=== PATIENT | female | born 1945 | race African-American/Black ===

== ENCOUNTER 2017-07-09 08:43 | Emergency (ER) | payer MEDICARE | END 2017-07-09 09:28 | disposition home or self-care (01) | LOC: ERS 08:43 | DX: M54.32 Sciatica, left side (principal); K21.0 Gastro-esophageal reflux disease with esophagitis; I10 Essential (primary) hypertension; F17.210 Nicotine dependence, cigarettes, uncomplicated; Z79.899 Other long term (current) drug therapy | CPT/HCPCS: 99283 ==

== ENCOUNTER 2017-08-23 20:02 | Emergency (ER) | payer MEDICARE ==
[2017-08-23 20:44] LABS: #Basophils 0.1 thou/uL (0.0-0.2); #Eosinphils 0.1 thou/uL (0.0-0.7); #Lymphocytes 1.3 thou/uL (1.20-3.40); #Monocytes 0.4 thou/uL (0.11-0.59); #Neutrophils 3.3 thou/uL (1.40-6.50); %Basophils 1.1 % (0.0-1.0); %Eosinophils 2.2 % (0.0-10.0); %Monocytes 8.2 % (0.0-10.0); %Neutrophils 63.6 % (42.0-75.0); Hemoglobin 14.8 g/dL (12.0-16.0); Mean Corpuscular HGB CONC 33.6 g/dL (32.0-36.0); Mean Corpuscular Hemoglobin 30.9 pg (27.0-31.0); Mean Corpuscular Volume 91.9 fl (81.0-99.0); Mean Platelet Volume 8.1 fL (7.4-10.4); Platelet Count 244 thou/uL (130-400); RBC Distribution Width 13.8 % (11.5-14.5); Red Blood Cell (RBC) Count 4.78 mill/uL (4.20-5.40); White Blood Cell (WBC) Count 5.3 thou/uL (4.8-10.8)
[2017-08-23 21:11] LABS: CKMB 0.9 ng/mL (0-6.6); Troponin I Less than 0.010 ng/mL (< 0.028)
[2017-08-23 21:15] LABS: ALT (SGPT) 19 U/L (8-55); AST (SGOT) 33 U/L (5-34); Albumin 4.4 g/dL (3.4-4.8); Alkaline Phosphatase 85 U/L (40-150); Anion Gap 13 mmol/L (10-20); BUN (Urea Nitrogen) 13 mg/dL (9.8-20.1); Bilirubin, Total 0.3 mg/dL (0.2-1.2); CK (CPK) 129 U/L (29-168); Calc. Creatinine Clearance 0 mL/min (70-130); Calcium 10.6 mg/dL (7.8-10.44); Carbon Dioxide 27 mmol/L (23-31); Chloride 102 mmol/L (98-107); Estimated GFR-MDRD 40; Glucose 148 mg/dL (83-110); Protein, Total 8.4 g/dL (6.0-8.3); Sodium 138 mmol/L (136-145)
== END 2017-08-23 21:56 | disposition home or self-care (01) ==
LOC: ERS 20:02
DX: I10 Essential (primary) hypertension (principal); K21.9 Gastro-esophageal reflux disease without esophagitis; F17.210 Nicotine dependence, cigarettes, uncomplicated; Z79.82 Long term (current) use of aspirin; Z79.899 Other long term (current) drug therapy
CPT/HCPCS: 80053; 82550; 82553; 83880; 84484; 85025; 93005

== ENCOUNTER 2017-12-14 19:51 | Emergency (ER) | payer MEDICARE ==
[2017-12-14] MEDS ORDERED: Ketorolac Tromethamine 60 MG/2 ML VIAL ONE (20:44)
--- NOTE | 2017-12-14 20:55 | RAD ---
RIGHT KNEE FOUR VIEWS: HISTORY: Right knee pain. FINDINGS: There are moderate arthritic changes of the knee. There is medial and lateral compartment narrowing and degenerative change. Minimal patellofemoral degenerative spurring. A small joint effusion. The bones appear demineralized. IMPRESSION: Moderate osteoarthritic changes of the knee. POS: [facility]
== END 2017-12-14 21:10 | disposition home or self-care (01) ==
LOC: ERS 19:51
DX: M17.11 Unilateral primary osteoarthritis, right knee (principal); K21.9 Gastro-esophageal reflux disease without esophagitis; I10 Essential (primary) hypertension; F17.210 Nicotine dependence, cigarettes, uncomplicated; Z79.82 Long term (current) use of aspirin; Z79.899 Other long term (current) drug therapy
CPT/HCPCS: 96372; J1885

== ENCOUNTER 2020-02-29 09:12 | Outpatient (CLI) | payer MEDICARE ==
--- NOTE | 2020-02-29 09:44 | MMO ---
Bilateral MAMMO Bilat Screen [facility]. CLINICAL HISTORY: Patient is 74 years old and is seen for screening. The patient has no family history of breast cancer. The patient has no personal history of cancer. The patient has a history of right Excisional Biopsy at age 55 - benign. VIEWS: The views performed were: bilateral craniocaudal with tomosynthesis and bilateral mediolateral oblique with tomosynthesis. FILMS COMPARED: The present examination has been compared to prior imaging studies performed at [facility] on 01/18/2010, 10/06/2015, 10/10/2016 and 11/16/2018. This study has been interpreted with the assistance of computer-aided detection. MAMMOGRAM FINDINGS: There are scattered fibroglandular densities. There are no suspicious masses, suspicious calcifications, or new areas of architectural distortion. IMPRESSION: THERE IS NO MAMMOGRAPHIC EVIDENCE OF MALIGNANCY. A ROUTINE FOLLOW-UP MAMMOGRAM IN 1 YEAR IS RECOMMENDED. THE RESULTS OF THIS EXAM WERE SENT TO THE PATIENT. ACR BI-RADS Category 1 - Negative MAMMOGRAPHY NOTE: 1. A negative mammogram report should not delay a biopsy if a dominant of clinically suspicious mass is present. 2. Approximately 10% to 15% of breast cancers are not detected by mammography. 3. Adenosis and dense breasts may obscure an underlying neoplasm. Reported by: LAZARO DUGAN MD Electonically Signed: [id number]
== END 2020-02-29 09:13 | disposition home or self-care (01) ==
LOC: BICMAMMO 09:12 → MERGE 09:12 → BICMAMMO 09:13
PROVIDERS: ATTEND Family Medicine
DX: Z12.31 Encounter for screening mammogram for malignant neoplasm of breast (principal); Z91.89 Other specified personal risk factors, not elsewhere classified
CPT/HCPCS: 77063; 77067

== ENCOUNTER 2020-03-24 19:56 | Observation (INO) | payer MEDICARE ==
[2020-03-24] MEDS ORDERED: EPINEPHrine 1 MG/ML AMP ONE (21:24)
[2020-03-24] MEDS ORDERED: diphenhydrAMINE 50 MG/ML VIAL ONE (21:24)
[2020-03-24] MEDS ORDERED: Famotidine/PF 20 mg/2ml Vial ONE (21:24)
[2020-03-24] MEDS ORDERED: methylPREDNISolone Sod Succ/PF 125 MG/2 ML VIAL ONE (21:24)
--- NOTE | 2020-03-24 21:30 | PDOC.HHP ---
Hospitalist HPI - History of Present Illness History of Present Illness: ADMISSION DATE: 03/24/2020 TIME OF ASSESSMENT: 2129 PRIMARY CARE PHYSICIAN: Lux Coronado CHIEF COMPLAINT: Tongue swelling HPI: Patient is a 74-year-old female past medical history significant for GERD and hypertension. She presents to the ER today after approximately 4 hours of tongue swelling. She states this is never happened before. Patient has been taking lisinopril for 6 months and states that her younger brother had a history of MARTA inhibitor induced angioedema and required a tracheostomy. She denies any difficulty breathing or difficulty swallowing at this time. She did take Benadryl and cough syrup approximately 90 minutes prior to arrival. Patient denies any chest pain, shortness of breath, Covid exposure, GI or upset, fever. ED COURSE: Vital Signs: Blood pressure 154/103, pulse 104, respiratory rate 16, temp 98.3, 100% on room air Today in the ER they completed lab work. She was administered epinephrine 0.15 mg IM, Benadryl 50 mg IV, methylprednisolone 125 mg IV, famotidine 20 mg IV, and 2 units fresh frozen plasma. PAST MEDICAL HISTORY: Acid reflux, hypertension PAST SURGICAL HISTORY: Right breast lumpectomy, tubal ligation, abscess to right cheek SOCIAL HISTORY: Patient lives at home with family. She denies alcohol or drug use. She is a current smoker and half a pack per day. FAMILY HISTORY: Brother with history of MARTA inhibitor induced angioedema requiring trach ALLERGIES: MARTA inhibitor CURRENT MEDICATIONS: Omeprazole 20 mg daily Lisinopril 20 mg daily Aspirin 81 mg daily Hospitalist ROS - Review of Systems ENT: reports: other (tongue swelling) All other systems reviewed; all pertinent +/- noted in HPI/Subj - Exam General Appearance: NAD, awake alert Eye: PERRL ENT: dry oral mucosa ENT - other findings: no hoarseness/stridor,visible uvula, tongue swelling L>R, mod. lip swell Neck: supple Heart: RRR, murmur present Respiratory: CTAB, no wheezes, no rales, no ronchi Gastrointestinal: soft, non-tender, non-distended, normal bowel sounds Extremities: no edema Neurological: no focal deficits Psychiatric: normal affect, normal behavior Hospitalist Results - Labs Result Diagrams: 03/24/20 21:21 03/24/20 22:17 Hospitalist H&P A/P - Plan Plan: MARTA inhibitor induced angioedema Continuous pulse ox Continue to monitor for any increased difficulty breathing or increased tongue swelling Continue IV Benadryl as needed Continue IV Pepcid and Solu-Medrol Receiving plasma in ER Start IV fluids Hypertension Monitor vital signs every 4 hours As needed antihypertensives available Hyponatremia Continue IV fluids Chronic kidney disease stage III Continue to monitor Avoid nephrotoxic medications Tobacco abuse Tobacco cessation education May have nicotine patch if desired VTE prophylaxis in place with SCDs Surrogate decision-makers are her daughters CODE STATUS: Full Patient has been discussed with Dr. Adelfo Dale
[2020-03-24 21:41] LABS: #Eosinphils 0.1 thou/uL (0.0-0.7); #Lymphocytes 1.2 thou/uL (1.20-3.40); #Monocytes 0.5 thou/uL (0.11-0.59); #Neutrophils 2.9 thou/uL (1.40-6.50); %Basophils 0.2 % (0.0-1.0); %Eosinophils 1.3 % (0.0-10.0); %Monocytes 10.6 % (0.0-10.0); %Neutrophils 62.9 % (42.0-75.0); Hemoglobin 12.1 g/dL (12.0-16.0); Mean Corpuscular HGB CONC 32.3 g/dL (32.0-36.0); Mean Corpuscular Hemoglobin 27.4 pg (27.0-31.0); Mean Corpuscular Volume 84.9 fL (78.0-98.0); Mean Platelet Volume 7.8 fL (7.4-10.4); Platelet Count 342 thou/uL (130-400); Red Blood Cell (RBC) Count 4.41 mill/uL (4.20-5.40); White Blood Cell (WBC) Count 4.6 thou/uL (4.8-10.8)
[2020-03-24] MEDS ORDERED: diphenhydrAMINE 50 MG/ML VIAL IVP PRN (22:09)
[2020-03-24] MEDS ORDERED: Labetalol HCl 100 MG/20 ML VIAL SLOW IVP PRN (22:14)
[2020-03-24 22:48] LABS: ALT (SGPT) 14 U/L (8-55); AST (SGOT) 17 U/L (5-34); Alkaline Phosphatase 84 U/L (40-110); Anion Gap 16 mmol/L (10-20); BUN (Urea Nitrogen) 20 mg/dL (9.8-20.1); Bilirubin, Total 0.2 mg/dL (0.2-1.2); Calc. Creatinine Clearance 0 mL/min (70-130); Calcium 9.8 mg/dL (7.8-10.44); Carbon Dioxide 24 mmol/L (23-31); Chloride 95 mmol/L (98-107); Globulin 3.1 g/dL (2.4-3.5); Glucose 188 mg/dL (83-110); Potassium 3.5 mmol/L (3.5-5.1); Protein, Total 7.1 g/dL (6.0-8.3); Sodium 131 mmol/L (136-145)
[2020-03-25 00:21] VITALS: BMI 31.0
[2020-03-25] MEDS: Sodium Chloride 0.9% 1,000 ML IV SCH ×2 (03:26→15:02)
[2020-03-25 04:28] LABS: SARS-CoV-2 MS2 Positive; SARS-CoV-2 N Gene Negative; SARS-CoV-2 S Gene Negative; SARS-CoV-2 by NAA Not Detected (NotDetected); SARS-CoV-2 orf1ab Negative
[2020-03-25 04:37] LABS: #Lymphocytes 0.3 thou/uL (1.20-3.40); #Monocytes 0.1 thou/uL (0.11-0.59); #Neutrophils 4.7 thou/uL (1.40-6.50); %Eosinophils 0.1 % (0.0-10.0); %Lymphocytes 5.8 % (21.0-51.0); %Monocytes 1.3 % (0.0-10.0); %Neutrophils 92.7 % (42.0-75.0); Hemoglobin 10.6 g/dL (12.0-16.0); Mean Corpuscular HGB CONC 32.7 g/dL (32.0-36.0); Mean Corpuscular Hemoglobin 27.7 pg (27.0-31.0); Mean Corpuscular Volume 84.6 fL (78.0-98.0); Mean Platelet Volume 7.7 fL (7.4-10.4); Platelet Count 307 thou/uL (130-400); RBC Distribution Width 13.7 % (11.5-14.5); Red Blood Cell (RBC) Count 3.83 mill/uL (4.20-5.40); White Blood Cell (WBC) Count 5.1 thou/uL (4.8-10.8)
[2020-03-25 04:50] LABS: Anion Gap 16 mmol/L (10-20); BUN (Urea Nitrogen) 20 mg/dL (9.8-20.1); Calc. Creatinine Clearance 48 mL/min (70-130); Calcium 9.7 mg/dL (7.8-10.44); Carbon Dioxide 24 mmol/L (23-31); Chloride 97 mmol/L (98-107); Glucose 203 mg/dL (83-110); Potassium 3.6 mmol/L (3.5-5.1); Sodium 133 mmol/L (136-145)
[2020-03-25] MEDS: Famotidine/PF 20 mg/2ml Vial SLOW IVP SCH ×2 (07:38→20:58)
[2020-03-25] MEDS: methylPREDNISolone Sod Succ 40 MG VIAL IVP SCH (07:39)
--- NOTE | 2020-03-25 19:43 | PDOC.HOSPP ---
- Subjective Encounter Date: 03/25/20 Subjective: Feeling considerably better. Her tongue edema has essentially resolved. She feels confident she could eat and she is hungry. Still has a little bit of edema under the chin. - Objective Vital Signs & Weight: Vital Signs (12 hours) Temp Pulse Resp BP BP Pulse Ox 03/25/20 16:18 98.3 F 72 17 149/77 H 99 03/25/20 12:12 99.2 F 03/25/20 10:18 80 18 141/78 H 97 Weight Weight 169 lb 11.2 oz Most Recent Monitor Data Heart Rate from ECG 84 NIBP 145/59 Respiration from ECG 20 I&O: 03/24/20 03/25/20 03/26/20 06:59 06:59 06:59 Intake Total 350 1740 Output Total 1750 900 Balance -1400 840 Result Diagrams: 03/25/20 03:52 03/25/20 03:52 Hospitalist ROS - Medication Medications: Active Medications Generic Name Dose Route Start Last Admin Trade Name Freq PRN Reason Stop Dose Admin Diphenhydramine HCl 50 mg 03/24/20 22:09 03/25/20 06:18 Diphenhydramine 50 Mg/Ml Vial IVP 50 mg DAILYPRN PRN Administration Dyspnea Famotidine 20 mg 03/25/20 09:00 03/25/20 07:38 Famotidine/Pf 20 Mg/2ml Vial SLOW IVP 20 mg Q12HR JACK Administration Methylprednisolone Sodium Succinate 40 mg 03/25/20 09:00 03/25/20 07:39 Methylprednisolone Sod Succ 40 Mg Vial IVP 40 mg DAILY JACK Administration - Exam General Appearance: NAD, awake alert ENT - other findings: No evidence of tongue or lip swelling. Neck: supple, symmetric, no JVD, no thyromegaly, no lymphadenopathy, no carotid bruit Heart: RRR, no murmur, no gallops, no rubs, normal peripheral pulses Respiratory: CTAB, no wheezes, no rales, no ronchi, normal chest expansion, no tachypnea, normal percussion Hosp A/P (1) Angioedema due to angiotensin converting enzyme inhibitor (MARTA-I) Code(s): T78.3XXA - ANGIONEUROTIC EDEMA, INITIAL ENCOUNTER; T46.4X5A - ADVERSE EFFECT OF [id number] INHIBITORS, INIT Status: Acute (2) Hypertension Code(s): I10 - ESSENTIAL (PRIMARY) HYPERTENSION Status: Acute - Plan Patient appears to have significant resolution of her angioedema related to the MARTA inhibitor. We will go ahead and advance her diet. Continue to monitor today. If this continues to be resolved by the morning will discharge to home. Will need alternative medication for her blood pressure.
[2020-03-26 07:34] VITALS: BP 137/99; TEMP 98.1
[2020-03-26] MEDS: Famotidine/PF 20 mg/2ml Vial SLOW IVP SCH (08:28)
[2020-03-26] MEDS: methylPREDNISolone Sod Succ 40 MG VIAL IVP SCH (08:28)
--- NOTE | 2020-03-26 18:43 | PDOC.DS.DS ---
Provider - Provider Date of Admission: 03/24/20 21:46 Date of Discharge: 03/26/20 Admitting Provider: Louis Limon Primary Care Physician: LUX ROD JR, MD Course - Hospital Course Hospital Course: This patient is a 74-year-old female with a history of hypertension. She was on an MARTA inhibitor that she had been on for a long period of time. She subsequent ly developed swelling in her tongue on the left side. She went to bed and by the following morning the left side had resolved but she had developed new swelling in the right side of the tongue and her lower mouth area. She had a brother with a history of MARTA inhibitor related angioedema so she presented to the hospital for further evaluation. The patient was given aggressive treatment in the emergency department including antihistamines, steroids, epinephrine. She was subsequently placed in observation status for further evaluation. She had progressive improvement to the point of resolution of all of her edema and was allowed to resume a regular diet. She had no difficulty with that and was felt to be stable for discharge to home with new medications for blood pressure. Resuscitation Status: 03/24/20 22:09 Resuscitation Status Routine Co-Sign Provider: Resuscitation Status: FULL: Full Resuscitation Discussed with: pt - Labs Lab Results: 03/25/20 03:52 03/25/20 03:52 Abnormal Lab Results - Last 48 hrs 03/24/20 21:21: WBC 4.6 L, Monocytes % 10.6 H 03/24/20 22:17: Sodium 131 L, Chloride 95 L, Creatinine 1.44 H 03/25/20 03:52: Sodium 133 L, Chloride 97 L, Creatinine 1.28 H 03/25/20 03:52: RBC 3.83 L, Hgb 10.6 L, Hct 32.4 L, Neutrophils % 92.7 H, Lymphocytes % 5.8 L, Lymphocytes # 0.3 L, Monocytes # 0.1 L - Physical Exam Vitals: Vital Signs (12 hours) Temp Pulse Resp BP Pulse Ox 03/26/20 07:20 98.1 F 62 16 137/99 H 98 Weight Weight 170 lb 12.8 oz Most Recent Monitor Data Heart Rate from ECG 84 NIBP 145/59 Respiration from ECG 20 Physical Exam: The patient was seen and examined on the day of discharge. Patient demonstrated no evidence of persistent edema of the tongue lips mouth or neck area. 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 converting enzyme inhibitor (MARTA-I) Code(s): T78.3XXA - ANGIONEUROTIC EDEMA, INITIAL ENCOUNTER; T46.4X5A - ADVERSE EFFECT OF [id number] INHIBITORS, INIT Status: Acute (2) Hypertension Code(s): I10 - ESSENTIAL (PRIMARY) HYPERTENSION Status: Acute Plan - Discharge Medications Prescriptions: Amlodipine [Norvasc] 5 mg PO DAILY #30 tab predniSONE 20 mg PO QAM-WM #4 tab Home Medications: Medication Instructions Recorded Confirmed Type Aspirin [Ecotrin Low Strength] 81 mg PO DAILY 03/25/20 03/25/20 History Omeprazole 20 mg PO DAILY 03/25/20 03/25/20 History Amlodipine [Norvasc] 5 mg PO DAILY #30 tab 03/26/20 Rx predniSONE 20 mg PO QAM-WM #4 tab 03/26/20 Rx Allergies: MARTA Inhibitors Allergy (Severe, Verified 03/25/20 00:34) swollen tongue - Discharge Instructions Activity:: Activity as Tolerated Nourishment:: Heart Healthy Diet - Follow up Plan Referrals: Lux Rod Jr, MD [Primary Care Provider] - 7 Days (CALL OFFICE TO SCEDULE APPOINTMENT) Disposition: HOME Quality - Care Measures CORE MEASURES:: N/A
== END 2020-03-26 09:55 | disposition home or self-care (01) ==
LOC: ERS 19:56 → 2NO 21:46
PROVIDERS: ADMIT Internal Medicine; ATTEND Internal Medicine
DX: T78.3XXA Angioneurotic edema, initial encounter (principal); T46.4X5A Adverse effect of angiotensin-converting-enzyme inhibitors, initial encounter; I12.9 Hypertensive chronic kidney disease with stage 1 through stage 4 chronic kidney disease, or unspecified chronic kidney disease; N18.30 Chronic kidney disease, stage 3 unspecified; E87.1 Hypo-osmolality and hyponatremia; F17.210 Nicotine dependence, cigarettes, uncomplicated; K21.9 Gastro-esophageal reflux disease without esophagitis; Z79.82 Long term (current) use of aspirin; Z79.899 Other long term (current) drug therapy; Z88.8 Allergy status to other drugs, medicaments and biological substances; Z20.822 Contact with and (suspected) exposure to COVID-19
CPT/HCPCS: 36430; 80048; 80053; 85025 ×2; 86850; 86900; 86901; 96372; 96374; 96375; 99284; P9059; U0003; 36415; 87635; 96376; G0378; J0171; J1200; J2920; J2930; S0028

== ENCOUNTER 2020-06-29 09:30 | Inpatient (IN) | payer MEDICARE ==
[2020-06-29] MEDS ORDERED: hydrALAZINE 20 MG/ML VIAL ONE ×2 (10:28→12:00)
[2020-06-29] MEDS ORDERED: Nitroglycerin 2% Ointment 1 INCH/1 GM Packet ONE (11:05)
[2020-06-29 11:23] LABS: #Basophils 0.1 thou/uL (0.0-0.2); #Lymphocytes 1.3 thou/uL (1.20-3.40); #Monocytes 0.7 thou/uL (0.11-0.59); #Neutrophils 4.6 thou/uL (1.40-6.50); %Basophils 1.4 % (0.0-1.0); %Eosinophils 0.6 % (0.0-10.0); %Lymphocytes 19.7 % (21.0-51.0); %Monocytes 10.2 % (0.0-10.0); %Neutrophils 68.2 % (42.0-75.0); Hemoglobin 12.5 g/dL (12.0-16.0); Mean Corpuscular HGB CONC 32.1 g/dL (32.0-36.0); Mean Corpuscular Hemoglobin 27.7 pg (27.0-31.0); Mean Corpuscular Volume 86.5 fL (78.0-98.0); Mean Platelet Volume 8.7 fL (7.4-10.4); Platelet Count 237 thou/uL (130-400); RBC Distribution Width 17.1 % (11.5-14.5); Red Blood Cell (RBC) Count 4.52 mill/uL (4.20-5.40); White Blood Cell (WBC) Count 6.7 thou/uL (4.8-10.8)
[2020-06-29 11:42] LABS: ALT (SGPT) 14 U/L (8-55); AST (SGOT) 19 U/L (5-34); Albumin 3.8 g/dL (3.4-4.8); Alkaline Phosphatase 77 U/L (40-110); Anion Gap 11 mmol/L (10-20); BUN (Urea Nitrogen) 12 mg/dL (9.8-20.1); Bilirubin, Total 0.3 mg/dL (0.2-1.2); Calc. Creatinine Clearance 0 mL/min (70-130); Calcium 9.6 mg/dL (7.8-10.44); Carbon Dioxide 23 mmol/L (23-31); Chloride 106 mmol/L (98-107); Globulin 2.9 g/dL (2.4-3.5); Glucose 122 mg/dL (83-110); Potassium 3.4 mmol/L (3.5-5.1); Protein, Total 6.7 g/dL (5.8-8.1); Sodium 137 mmol/L (136-145)
[2020-06-29 12:04] LABS: CKMB 1.1 ng/mL (0-6.6)
[2020-06-29 12:53] LABS: Bilirubin Negative (Negative); Blood, Urine Negative (Negative); Clarity Clear (Clear); Glucose, Urine (Dipstick) Normal (Negative); Ketone, Urine Negative (Negative); Leukocyte Negative Leu/uL (Negative); Nitrite Negative (Negative); Protein, Urine (Dipstick) Negative (Neg-Trace); Specific Gravity, Urine 1.004 (1.002-1.036); Urobilinogen Normal mg/dL (Less than 2)
[2020-06-29] MEDS ORDERED: Acetaminophen 325 MG TAB PO PRN (15:29)
[2020-06-29] MEDS ORDERED: Potassium Chloride 20 MEQ TAB PO SCH (15:45)
[2020-06-29] MEDS ORDERED: cloNIDine 0.1 MG TAB PO PRN (16:28)
[2020-06-29] MEDS ORDERED: NIFEdipine XL 30 MG TAB PO SCH (16:45)
[2020-06-29 16:53] VITALS: BMI 31.2
[2020-06-29] MEDS: Nicotine 14 MG PATCH TD SCH (16:56)
[2020-06-29] MEDS ORDERED: Magnesium 2 GM/50 ML 2 GM in Premix Bag 1 BAG IVPB SCH (17:45)
[2020-06-29 17:47] LABS: SARS-CoV-2 PCR by NAA Not Detected (NotDetected)
[2020-06-29 17:49] LABS: Troponin I 0.073 ng/mL (< 0.028)
[2020-06-29] MEDS: hydrALAZINE 20 MG/ML VIAL SLOW IVP PRN (19:08)
[2020-06-29] MEDS: hydrALAZINE 25 MG TAB PO SCH (20:55)
[2020-06-29] MEDS ORDERED: Nitroglycerin 2% Ointment 1 INCH/1 GM Packet TOP SCH (22:00)
[2020-06-29] MEDS: Nitroglycerin 2% Ointment 1 INCH/1 GM Packet TOP SCH (22:50)
[2020-06-30] MEDS: hydrALAZINE 20 MG/ML VIAL SLOW IVP PRN (00:38)
[2020-06-30 04:49] LABS: #Basophils 0.1 thou/uL (0.0-0.2); #Lymphocytes 1.7 thou/uL (1.20-3.40); #Monocytes 0.5 thou/uL (0.11-0.59); #Neutrophils 2.8 thou/uL (1.40-6.50); %Basophils 1.5 % (0.0-1.0); %Eosinophils 0.9 % (0.0-10.0); %Lymphocytes 33.2 % (21.0-51.0); %Monocytes 9.1 % (0.0-10.0); %Neutrophils 55.3 % (42.0-75.0); Hemoglobin 11.8 g/dL (12.0-16.0); Mean Corpuscular HGB CONC 31.2 g/dL (32.0-36.0); Mean Corpuscular Hemoglobin 27.1 pg (27.0-31.0); Mean Corpuscular Volume 87.1 fL (78.0-98.0); Mean Platelet Volume 8.5 fL (7.4-10.4); Platelet Count 250 thou/uL (130-400); RBC Distribution Width 17.3 % (11.5-14.5); Red Blood Cell (RBC) Count 4.36 mill/uL (4.20-5.40); White Blood Cell (WBC) Count 5.1 thou/uL (4.8-10.8)
[2020-06-30 05:06] LABS: Anion Gap 10 mmol/L (10-20); BUN (Urea Nitrogen) 13 mg/dL (9.8-20.1); Calc. Creatinine Clearance 65 mL/min (70-130); Carbon Dioxide 25 mmol/L (23-31); Chloride 110 mmol/L (98-107); Glucose 109 mg/dL (83-110); Magnesium 1.8 mg/dL (1.6-2.6); Potassium 3.5 mmol/L (3.5-5.1); Sodium 141 mmol/L (136-145)
[2020-06-30] MEDS: Nitroglycerin 2% Ointment 1 INCH/1 GM Packet TOP SCH ×2 (07:21→14:55)
[2020-06-30] MEDS: hydrALAZINE 25 MG TAB PO SCH (08:38)
[2020-06-30] MEDS ORDERED: NIFEdipine XL 30 MG TAB PO SCH (09:00)
[2020-06-30] MEDS ORDERED: Hydrochlorothiazide 25 MG TAB PO SCH (11:30)
[2020-06-30] MEDS ORDERED: hydrALAZINE 25 MG TAB PO SCH (15:00)
[2020-06-30 15:21] VITALS: BP 151/79; TEMP 98.1
[2020-06-30] MEDS: Nicotine 14 MG PATCH TD SCH (16:38)
[2020-07-01] MEDS ORDERED: NIFEdipine XL 30 MG TAB PO SCH (09:00)
[2020-07-01] MEDS ORDERED: Hydrochlorothiazide 25 MG TAB PO SCH (09:00)
== END 2020-06-30 17:32 | disposition home or self-care (01) | DRG 305 ==
LOC: ERS 09:30 → ERHOLD 12:33 → 2NO 16:14
PROVIDERS: ADMIT Internal Medicine; ATTEND Internal Medicine
DX: I16.0 Hypertensive urgency (principal); I16.1 Hypertensive emergency; I10 Essential (primary) hypertension; K21.9 Gastro-esophageal reflux disease without esophagitis; Z88.8 Allergy status to other drugs, medicaments and biological substances; Z98.51 Tubal ligation status; F17.210 Nicotine dependence, cigarettes, uncomplicated; Z82.49 Family history of ischemic heart disease and other diseases of the circulatory system; R00.1 Bradycardia, unspecified; T78.3XXA Angioneurotic edema, initial encounter; T46.4X5A Adverse effect of angiotensin-converting-enzyme inhibitors, initial encounter
CPT/HCPCS: 36415; 71045; 80048; 80053; 81003; 82553; 83735; 84484; 85025; 87086; 87635; 93005; 93306; 94760; 96374; J0360; J3475; U0003; U0005

== ENCOUNTER 2022-09-25 14:52 | Outpatient (CLI) | payer MEDICARE | END 2022-09-25 14:53 | disposition home or self-care (01) | LOC: BICMAMMO 14:52 | PROVIDERS: ATTEND Family Medicine | DX: Z12.31 Encounter for screening mammogram for malignant neoplasm of breast (principal); Z13.820 Encounter for screening for osteoporosis; Z12.2 Encounter for screening for malignant neoplasm of respiratory organs; F17.210 Nicotine dependence, cigarettes, uncomplicated; J47.9 Bronchiectasis, uncomplicated; R91.8 Other nonspecific abnormal finding of lung field; M81.0 Age-related osteoporosis without current pathological fracture; M85.851 Other specified disorders of bone density and structure, right thigh; Z78.0 Asymptomatic menopausal state | CPT/HCPCS: 71271; 77063; 77067; 77080 ==

== ENCOUNTER 2024-02-18 16:10 | Inpatient (IN) | payer MEDICARE ==
[2024-02-18] MEDS ORDERED: NIFEdipine XL 60 MG ER.TAB PO SCH (17:00)
[2024-02-19 18:19] VITALS: BMI 26.9
[2024-02-19] MEDS ORDERED: Acetaminophen 325 MG TAB PO PRN (21:30)
[2024-02-19] MEDS ORDERED: Ondansetron PF 4 MG/2 ML Vial SLOW IVP PRN (21:30)
[2024-02-19] MEDS ORDERED: Acetaminophen 650 MG Suppository PR PRN (21:30)
[2024-02-19] MEDS ORDERED: Ondansetron ODT 4 MG TAB PO PRN (21:30)
[2024-02-19] MEDS: Potassium Chloride 20 MEQ TAB ONE (22:30)
[2024-02-20] MEDS: hydrALAZINE 20 MG/ML VIAL SLOW IVP SCH (04:10)
[2024-02-20] MEDS ORDERED: hydrALAZINE 20 MG/ML VIAL SLOW IVP SCH (04:15)
[2024-02-20 05:18] LABS: #Basophils Less than 0.03 10x3/uL (0.0-0.2); %Basophils 0.5 % (0.0-1.0); %Eosinophils 2.5 % (0.0-10.0); %Lymphocytes 34.9 % (21.0-51.0); %Monocytes 10.2 % (0.0-10.0); %Neutrophils 51.7 % (42.0-75.0); Hematocrit 36.9 % (36.0-47.0); Hemoglobin 11.7 g/dL (12.0-16.0); Mean Corpuscular HGB CONC 31.7 g/dL (32.0-36.0); Mean Corpuscular Hemoglobin 26.5 pg (27.0-31.0); Mean Corpuscular Volume 83.7 fL (78.0-98.0); Mean Platelet Volume 9.8 fL (7.4-10.4); Platelet Count 305 10x3/uL (130-400); RBC Distribution Width 14.6 % (11.5-14.5); Red Blood Cell (RBC) Count 4.41 mill/uL (4.20-5.40)
[2024-02-20] MEDS: hydrALAZINE 20 MG/ML VIAL ONE (05:21)
[2024-02-20 05:39] LABS: Anion Gap 12 mmol/L (10-20); BUN (Urea Nitrogen) 12 mg/dL (9.8-20.1); Calc. Creatinine Clearance 51 mL/min (70-130); Calcium 9.1 mg/dL (7.8-10.44); Carbon Dioxide 25 mmol/L (23-31); Chloride 107 mmol/L (98-107); Estimated GFR 60; Glucose 108 mg/dL (83-110); Potassium 3.8 mmol/L (3.5-5.1); Sodium 140 mmol/L (136-145)
[2024-02-20] MEDS: NIFEdipine XL 60 MG ER.TAB ONE (05:44)
[2024-02-20] MEDS ORDERED: FLU (Fluad Triv) TS24-25 (65UP)/MF59C/PF 45 MCG/0.5 ML Syringe IM ONE (09:00)
[2024-02-20 10:41] LABS: Anion Gap 14 mmol/L (10-20); BUN (Urea Nitrogen) 12 mg/dL (9.8-20.1); Calc. Creatinine Clearance 51 mL/min (70-130); Carbon Dioxide 27 mmol/L (23-31); Chloride 102 mmol/L (98-107); Estimated GFR 59; Glucose 106 mg/dL (83-110); Potassium 2.6 mmol/L (3.5-5.1); Sodium 140 mmol/L (136-145)
[2024-02-20 10:43] LABS: Critical Call Chemistry 2NO.BH1@1043
[2024-02-20 11:09] LABS: Troponin I 0.194 ng/mL (< 0.028)
[2024-02-20] MEDS: NIFEdipine XL 60 MG ER.TAB PO SCH (11:30)
[2024-02-20] MEDS: Hydrochlorothiazide 25 MG TAB PO SCH (11:35)
[2024-02-20 11:43] VITALS: BP 139/74; TEMP 98
[2024-02-20 17:57] LABS: #Basophils Less than 0.03 10x3/uL (0.0-0.2); %Basophils 0.5 % (0.0-1.0); %Eosinophils 2.7 % (0.0-10.0); %Lymphocytes 31.3 % (21.0-51.0); %Monocytes 11.2 % (0.0-10.0); %Neutrophils 54.1 % (42.0-75.0); Hematocrit 35.3 % (36.0-47.0); Hemoglobin 11.1 g/dL (12.0-16.0); Mean Corpuscular HGB CONC 31.4 g/dL (32.0-36.0); Mean Corpuscular Hemoglobin 26.8 pg (27.0-31.0); Mean Corpuscular Volume 85.3 fL (78.0-98.0); Mean Platelet Volume 9.6 fL (7.4-10.4); Platelet Count 309 10x3/uL (130-400); RBC Distribution Width 14.6 % (11.5-14.5); Red Blood Cell (RBC) Count 4.14 mill/uL (4.20-5.40)
[2024-02-20] MEDS ORDERED: Famotidine/PF 20 mg/2ml Vial SLOW IVP SCH (21:00)
[2024-02-20] MEDS ORDERED: Famotidine 20 MG TAB PO SCH (21:00)
[2024-02-21] MEDS ORDERED: Potassium Chloride 20 MEQ TAB PO SCH (08:00)
[2024-02-21] MEDS ORDERED: Pantoprazole DR 40 MG TAB PO SCH (09:00)
[2024-02-21] MEDS ORDERED: Aspirin 81 mg Enteric Coated Tablet PO SCH (09:00)
[2024-02-21] MEDS ORDERED: NIFEdipine XL 60 MG ER.TAB PO SCH (09:00)
[2024-02-21] MEDS ORDERED: Hydrochlorothiazide 25 MG TAB PO SCH (09:00)
[2024-02-22] MEDS ORDERED: Potassium Chloride 20 MEQ TAB PO SCH (08:00)
[2024-02-23 11:06] LABS: %Basophils 0.4 % (0.0-1.0); %Eosinophils 2.6 % (0.0-10.0); %Lymphocytes 27.2 % (21.0-51.0); %Monocytes 11.1 % (0.0-10.0); %Neutrophils 58.5 % (42.0-75.0); Hematocrit 38.8 % (36.0-47.0); Hemoglobin 12.4 g/dL (12.0-16.0); Mean Corpuscular Hemoglobin 26.8 pg (27.0-31.0); Mean Corpuscular Volume 83.8 fL (78.0-98.0); Mean Platelet Volume 9.8 fL (7.4-10.4); Platelet Count 346 10x3/uL (130-400); RBC Distribution Width 14.7 % (11.5-14.5); Red Blood Cell (RBC) Count 4.63 mill/uL (4.20-5.40); White Blood Cell (WBC) Count 4.67 10x3/uL (4.8-10.8)
[2024-02-23 11:07] LABS: #Basophils 0.02 10x3/uL (0.0-0.2); #Eosinophils 0.12 10x3/uL (0.0-0.7); #Monocytes 0.52 10x3/uL (0.11-0.59); #Neutrophils 2.73 10x3/uL (1.40-6.50)
[2024-02-23 11:34] LABS: Bilirubin Negative (Negative); Blood, Urine Negative (Negative); Clarity Clear (Clear); Glucose, Urine (Dipstick) Normal (Negative); Ketone, Urine Negative (Negative); Leukocyte 75 Leu/uL (Negative); Nitrite Negative (Negative); Protein, Urine (Dipstick) 30 mg/dL (Neg-Trace); RBC/HPF 0-3 HPF (0-3); Specific Gravity, Urine 1.008 (1.002-1.036); Urobilinogen Normal mg/dL (Less than 2); pH, Urine 6.5 (5.0-9.0)
[2024-02-23 11:35] LABS: Bacteria/HPF 2+ HPF (None Seen); Squamous Epithelial 0-3 HPF (0-3)
[2024-02-23 11:43] LABS: ALT (SGPT) 13 U/L (8-55); AST (SGOT) 29 U/L (5-34); Albumin 3.5 g/dL (3.4-4.8); Alkaline Phosphatase 95 U/L (40-110); Anion Gap 16 mmol/L (10-20); BUN (Urea Nitrogen) 14 mg/dL (9.8-20.1); Bilirubin, Total 0.3 mg/dL (0.2-1.2); Calc. Creatinine Clearance 36 mL/min (70-130); Calcium 9.7 mg/dL (7.8-10.44); Carbon Dioxide 27 mmol/L (23-31); Chloride 100 mmol/L (98-107); Estimated GFR 39; Globulin 4.2 g/dL (2.4-3.5); Glucose 129 mg/dL (83-110); Potassium 3.5 mmol/L (3.5-5.1); Protein, Total 7.7 g/dL (5.8-8.1); Sodium 139 mmol/L (136-145)
[2024-02-24 14:23] LABS: Troponin I 0.181 ng/mL (< 0.028)
== END 2024-02-20 13:25 | disposition home or self-care (01) | DRG 305 ==
LOC: ERS 16:10 → OBS 22:16
PROVIDERS: ADMIT Student in an Organized Health Care Education/Training Program; ATTEND Internal Medicine
DX: I16.0 Hypertensive urgency (principal); K21.9 Gastro-esophageal reflux disease without esophagitis; F17.210 Nicotine dependence, cigarettes, uncomplicated; E87.6 Hypokalemia; I10 Essential (primary) hypertension; Z88.8 Allergy status to other drugs, medicaments and biological substances; Z79.82 Long term (current) use of aspirin; Z79.51 Long term (current) use of inhaled steroids; Z79.899 Other long term (current) drug therapy
CPT/HCPCS: 36415; 80048; 80053; 81003; 81015; 84484; 85025; 93005; J0360

== ENCOUNTER 2025-02-16 19:00 | Inpatient (IN) | payer MEDICARE ==
[~2025-02-16 19:00] MED LIST: Iopamidol-370 76% 500 ML MDV (1 ML CHARGE) ONE
[2025-02-16 20:21] LABS: #Basophils 0.03 10x3/uL (0.0-0.2); #Eosinophils 0.12 10x3/uL (0.0-0.7); #Monocytes 0.47 10x3/uL (0.11-0.59); #Neutrophils 5.34 10x3/uL (1.40-6.50); %Basophils 0.5 % (0.0-1.0); %Eosinophils 1.8 % (0.0-10.0); %Lymphocytes 9.7 % (21.0-51.0); %Monocytes 7.1 % (0.0-10.0); %Neutrophils 80.6 % (42.0-75.0); Hematocrit 29.4 % (36.0-47.0); Hemoglobin 8.5 g/dL (12.0-16.0); Mean Corpuscular Hemoglobin 23.8 pg (27.0-31.0); Mean Corpuscular Volume 82.4 fL (78.0-98.0); Platelet Count 323 10x3/uL (130-400); Red Blood Cell (RBC) Count 3.57 mill/uL (4.20-5.40); White Blood Cell (WBC) Count 6.62 10x3/uL (4.8-10.8)
[2025-02-16 20:25] LABS: ALT (SGPT) 14 U/L (Less than 34); AST (SGOT) 24 U/L (11-34); Albumin 3.8 g/dL (3.1-4.5); Alkaline Phosphatase 73 U/L (40-110); Anion Gap 14 mmol/L (10-20); BUN (Urea Nitrogen) 19 mg/dL (9.8-20.1); Bilirubin, Total 0.1 mg/dL (0.3-1.2); Calc. Creatinine Clearance 0 mL/min (70-130); Calcium 9.7 mg/dL (7.8-10.44); Carbon Dioxide 22 mmol/L (23-31); Chloride 104 mmol/L (98-107); Globulin 3.1 g/dL (2.4-3.5); Glucose 177 mg/dL (83-110); Lipase 55 U/L (8-78); Magnesium 1.5 mg/dL (1.6-2.6); Potassium 3.3 mmol/L (3.5-5.1); Sodium 137 mmol/L (136-145)
[2025-02-16 20:46] LABS: INR-International Normal Ratio 1.0; Prothrombin Time 13.4 sec (12.0-14.7)
[2025-02-16 20:48] LABS: PTT 22.1 sec (22.9-36.1)
[2025-02-16] MEDS ORDERED: Magnesium 2 GM/50 ML BAG (IN WATER) ONE (21:20)
[2025-02-16] MEDS ORDERED: hydrALAZINE 20 MG/ML VIAL SLOW IVP PRN (21:29)
[2025-02-16] MEDS ORDERED: Guaifenesin DM 100-10/5 ML UDCUP PO PRN (21:36)
[2025-02-16] MEDS ORDERED: Bisacodyl 10 MG SUPP PR PRN (21:36)
[2025-02-16] MEDS ORDERED: Calcium Carbonate 500 MG ChewTAB PO PRN (21:36)
[2025-02-16] MEDS ORDERED: Acetaminophen 325 MG TAB PO PRN (21:36)
[2025-02-16] MEDS ORDERED: Ondansetron PF 4 MG/2 ML Vial IVP PRN (21:36)
[2025-02-16] MEDS ORDERED: Senokot S 8.6-50 MG TAB PO PRN (21:36)
[2025-02-16] MEDS ORDERED: Melatonin 3 MG TAB PO PRN (21:36)
[2025-02-16] MEDS ORDERED: Electrolyte Replacement Protocol 1 EACH FS SCH (21:45)
[2025-02-16] MEDS ORDERED: Potassium Chloride 20 MEQ in Premix 1 BAG IVPB PRN (22:00)
[2025-02-16] MEDS ORDERED: PHOS-NAK 1 PKT PACK PO PRN (22:00)
[2025-02-16] MEDS ORDERED: NS 0.9% w/ 20 MEQ KCL 1,000 ML ONE (22:31)
[2025-02-16 23:58] VITALS: BMI 24.3
[2025-02-17 04:55] LABS: #Basophils Less than 0.03 10x3/uL (0.0-0.2); #Eosinophils 0.09 10x3/uL (0.0-0.7); #Monocytes 0.46 10x3/uL (0.11-0.59); #Neutrophils 3.75 10x3/uL (1.40-6.50); %Basophils 0.2 % (0.0-1.0); %Eosinophils 1.7 % (0.0-10.0); %Lymphocytes 19.5 % (21.0-51.0); %Monocytes 8.6 % (0.0-10.0); %Neutrophils 69.6 % (42.0-75.0); Hematocrit 28.9 % (36.0-47.0); Hemoglobin 8.2 g/dL (12.0-16.0); Mean Corpuscular Hemoglobin 23.7 pg (27.0-31.0); Mean Corpuscular Volume 83.5 fL (78.0-98.0); Platelet Count 328 10x3/uL (130-400); Red Blood Cell (RBC) Count 3.46 mill/uL (4.20-5.40); White Blood Cell (WBC) Count 5.38 10x3/uL (4.8-10.8)
[2025-02-17 05:06] LABS: Iron 63 ug/dL (50-170); Iron Binding Capacity, Total 344 mcg/dL (265-497)
[2025-02-17] MEDS: Magnesium 2 GM/50 ML(in water) 2 GM in Premix 1 BAG IVPB PRN (05:23)
[2025-02-17 05:26] LABS: ALT (SGPT) 11 U/L (Less than 34); AST (SGOT) 22 U/L (11-34); Albumin 3.6 g/dL (3.1-4.5); Alkaline Phosphatase 70 U/L (40-110); Anion Gap 12 mmol/L (10-20); BUN (Urea Nitrogen) 13 mg/dL (9.8-20.1); Bilirubin, Total 0.2 mg/dL (0.3-1.2); Calc. Creatinine Clearance 50 mL/min (70-130); Calcium 9.2 mg/dL (7.8-10.44); Carbon Dioxide 22 mmol/L (23-31); Cardiac Risk 2.7 (Less than 4.5); Chloride 111 mmol/L (98-107); Cholesterol 148 mg/dl (< 200 Desired); Globulin 2.9 g/dL (2.4-3.5); Glucose 102 mg/dL (83-110); HDL Cholesterol 55 mg/dL (>60 Neg Risk); Iron 64 ug/dL (50-170); Iron Binding Capacity, Total 346 mcg/dL (265-497); LDL Cholesterol, Calculated 82 mg/dL; Potassium 3.8 mmol/L (3.5-5.1); Sodium 141 mmol/L (136-145); Triglycerides 56 mg/dL (Less than 150)
[2025-02-17 05:36] LABS: Vitamin B12 Greater than 2000 pg/mL (211-911)
[2025-02-17 05:59] LABS: Magnesium 2.0 mg/dL (1.6-2.6)
[2025-02-17] MEDS: Enoxaparin 40 MG (0.4 mL) SYRINGE SC SCH (08:53)
[2025-02-17] MEDS: Aspirin 81 mg Enteric Coated Tablet PO SCH (08:54)
[2025-02-18 04:57] LABS: Magnesium 2.1 mg/dL (1.6-2.6)
[2025-02-18] MEDS: NIFEdipine XL 60 MG ER.TAB PO SCH (11:36)
[2025-02-18 11:37] VITALS: BMI 24.3
[2025-02-19 08:01] VITALS: BP 155/78; TEMP 98.7
[2025-02-19] MEDS: NIFEdipine XL 60 MG ER.TAB PO SCH (10:14)
== END 2025-02-19 11:56 | disposition home or self-care (01) | DRG 66 ==
LOC: ERS 19:00 → 2SE 21:34 → OBSVTOIN 02-17 13:16
PROVIDERS: ADMIT Internal Medicine; ATTEND Hospitalist
DX: I63.512 Cerebral infarction due to unspecified occlusion or stenosis of left middle cerebral artery (principal); I10 Essential (primary) hypertension; J45.909 Unspecified asthma, uncomplicated; R29.703 NIHSS score 3; K21.9 Gastro-esophageal reflux disease without esophagitis; D63.8 Anemia in other chronic diseases classified elsewhere; W19.XXXA Unspecified fall, initial encounter; F17.210 Nicotine dependence, cigarettes, uncomplicated; I65.02 Occlusion and stenosis of left vertebral artery; Z98.890 Other specified postprocedural states; Z98.51 Tubal ligation status
CPT/HCPCS: 36415; 36416; 70450; 70496; 70498; 70551; 71045; 80053; 80061; 82607; 83036; 83540; 83550; 83690; 83735; 83880; 84443; 84484; 85025; 85610; 85730; 93005; 93306; 93880; 96365; 96372; 96375; 96376; G0378; J1650; J3475; J3480; Q9967